=== PATIENT | female | born 1990 | race African-American/Black ===

== ENCOUNTER 2016-08-13 19:30 | Inpatient (IN) | payer MEDICAID ==
[2016-08-13] MEDS ORDERED: Lactated Ringers 1,000 ML ONE (19:56)
[2016-08-13] MEDS ORDERED: Sodium Chloride 0.9% 10 ML Syringe FLUSH PRN (20:25)
[2016-08-13] MEDS ORDERED: Nalbuphine 20 MG/1 ML Amp IVPUSH PRN (20:25)
[2016-08-13] MEDS ORDERED: Ondansetron 4 MG/2 ML SDV IVPUSH PRN (20:25)
[2016-08-13] MEDS ORDERED: fentaNYL 100 MCG/2 ML SDV ONE (20:27)
[2016-08-13] MEDS ORDERED: Oxytocin/Lactated Ringers 10 UNIT/1,000 ML BAG IV SCH (20:30)
--- NOTE | 2016-08-13 20:32 | PCM.LDHP ---
L&D History of Present Illness - General Date of Service: 08/13/16 Admit Problem/Dx: Patient Status Order with Admit Dx/Problem 08/13/16 20:25 Patient Status [ADT] Routine Admission Diagnosis/Problem Admission Diagnosis/Problem Normal Source of Information: Patient History Limitations: Reports: No Limitations - History of Present Illness Introduction:: 26 y/o at 38 1/7 wks presents in labor. States this afternoon she woke up from her nap feeling like her underwear were wet. Went to the restroom and noted some bleeding/spotting when she wiped. Presented to L&D thereafter. Exam showed patient to have similar dilation from clinic, but findings consistent with rupture. Otherwise doing well. Contractions really painful. 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) (Hx of hemorrhage) : 3 Para: 2 LMP (Approximate): Hematologic History: Reports: Blood Transfusion(s) (After second delivery required transfusion) - Infectious Disease History Infectious Disease History: Reports: 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) (Hx of gonorrhea and chlamydia) - Past Surgical History Female Surgical History: Reports: None Social & Family History - Tobacco Use Smoking Status *Q: Never Smoker - Alcohol Use Alcohol Use History: No - Recreational Drug Use Recreational Drug Use: No H&P Review of Systems - Review of Systems: Review Of Systems: See Below General: Reports: No Symptoms Pulmonary: Reports: No Symptoms Cardiovascular: Reports: No Symptoms Gastrointestinal: Reports: Abdominal Pain (contraction pain) Genitourinary: Reports: No Symptoms Musculoskeletal: Reports: No Symptoms L&D Exam - Exam Exam: See Below - Vital Signs Weight: 75.16 kg - OB Specific Contraction Intensity: Moderate Movement: Active Heart Tones: Present Heart Tones per Min: 140 Heart Rate (FHR) Variability: Moderate (6-25 bmp) Presentation: Vertex - Greene Score Greene Score Cervix Position: Posterior Greene Score Consistency: Soft Greene Score Effacement: 51-70% Greene Score Dilation: 3-4 cm Greene Score Infant's Station: -2 Greene Score Total: 7 - Exam General: Alert, Oriented, Cooperative Lungs: Clear to Auscultation, Normal Respiratory Effort Cardiovascular: Regular Rate, Regular Rhythm Abdomen: Soft Genitourinary: Normal external exam Extremities: Normal Inspection Skin: Warm, Dry, Intact - Problem List (1) 38 weeks gestation of SNOMED Code(s): 45307166 ICD Code: Z3A.38 - 38 WEEKS GESTATION OF Status: Acute Current Visit: Yes (2) cardiac echogenic focus SNOMED Code(s): 614855130 ICD Code: O35.8XX0 - MATERNAL CARE FOR OTH ABNORMALITY AND DAMAGE, UNSP Status: Acute Current Visit: Yes Qualifiers: Fetus number: single or unspecified fetus Qualified Code(s): O35.8XX0 - Maternal care for other (suspected) abnormality and damage, not applicable or unspecified Problem List Initiated/Reviewed/Updated: Yes Orders Last 24hrs: Active Orders 24 hr Category Date Time Status Patient Status [ADT] Routine ADT 08/13/16 20:25 Ordered Activity as Tolerated [RC] PFP Care 08/13/16 20:25 Ordered Communication Order [RC] ASDIRECTED Care 08/13/16 20:25 Ordered Heart Tones [RC] ASDIRECTED Care 08/13/16 20:25 Ordered Notify Provider [RC] PFP Care 08/13/16 20:25 Ordered Notify Provider [RC] PRN Care 08/13/16 20:25 Ordered Peripheral IV Care [RC] . DIRECTED Care 08/13/16 20:25 Ordered Vital Signs [RC] PER UNIT ROUTINE Care 08/13/16 20:25 Ordered CBC WITH AUTO DIFF [HEME] Stat Lab 08/13/16 20:10 Ordered Lactated Ringers [Ringers, Lactated] 1,000 ml Med 08/13/16 20:30 Ordered IV ASDIRECTED Nalbuphine [Nubain] Med 08/13/16 20:25 Ordered 10 mg IVPUSH Q2H PRN Ondansetron [Zofran] Med 08/13/16 20:25 Ordered 4 mg IVPUSH Q4H PRN Oxytocin/Lactated Ringers [Pitocin in LR 10 Units/1,000 Med 08/13/16 20:30 Ordered ML] 10 unit in 1,000 ml IV TITRATE Sodium Chloride 0.9% [Saline Flush] Med 08/13/16 20:25 Ordered 10 ml FLUSH ASDIRECTED PRN Electronic Heart Tones Ext w TOCO [WOMSER] Oth 08/13/16 20:25 Ordered Routine Electronic Heart Tones Internal [WOMSER] Per Unit Ot 08/13/16 20:25 Ordered Routine Peripheral IV Insertion Adult [OM.PC] Routine Ot 08/13/16 20:25 Ordered Resuscitation Status Routine Resus Stat 08/13/16 20:25 Ordered Medication Orders Lactated Ringer's (Ringers, Lactated) 1,000 mls @ 100 mls/hr IV ASDIRECTED KERRY Oxytocin/Lactated Ringer's (Pitocin In Lr 10 Units/1,000 Ml) 10 unit in 1,000 mls @ 500 mls/hr IV TITRATE KERRY PRN Reason: Protocol Nalbuphine HCl (Nubain) 10 mg IVPUSH Q2H PRN PRN Reason: Pain (moderate 4-6) Ondansetron HCl (Zofran) 4 mg IVPUSH Q4H PRN PRN Reason: Nausea/Vomiting Sodium Chloride (Saline Flush) 10 ml FLUSH ASDIRECTED PRN PRN Reason: Keep Vein Open Assessment/Plan Comment:: 26 y/o at 38 1/7 wks who presents in early labor/srom * CBC * GBS negative, no need for antibiotics * Pain management per patient preference, would like an epidural * Will make pediatric team aware of previous findings of echogenic cardiac focus on ultrasound * Anticipate
[2016-08-13] MEDS: Lactated Ringers 1,000 ML IV SCH ×2 (20:45→21:30)
--- NOTE | 2016-08-13 20:54 | PCM.PREANE ---
Preanesthetic Assessment - Anesthesia/Transfusion/Family Hx Anesthesia History: Prior Anesthesia Without Reaction Family History of Anesthesia Reaction: No Transfusion History: Prior Transfusion Without Reaction - Review of Systems General: No Symptoms Pulmonary: No Symptoms Cardiovascular: No Symptoms Gastrointestinal: No symptoms Neurological: No Symptoms Other: Reports: None - Physical Assessment Pulse: 87 O2 Sat by Pulse Oximetry: 100 Respiratory Rate: 22 Blood Pressure: 136/83 Temperature: 98 F Height: 5 ft 5 in Weight: 75.16 kg ASA Class: 2 Mental Status: Alert & Oriented x3 Airway Class: Mallampati = 1 Dentition: Reports: Normal Dentition Thyro-Mental Finger Breadths: 3 Mouth Opening Finger Breadths: 3 ROM/Head Extension: Other Lungs: Clear to auscultation Cardiovascular: Regular Rate, Regular Rhythm - Lab Values: Laboratory Last Values WBC 9.59 K/mm3 (3.98-10.04) 08/13/16 20:23 RBC 4.02 M/mm3 (3.98-5.22) 08/13/16 20:23 Hgb 10.3 gm/L (11.2-15.7) L 08/13/16 20:23 Hct 32.7 % (34.1-44.9) L 08/13/16 20:23 MCV 81.3 fl (79.4-94.8) 08/13/16 20:23 MCH 25.6 pg (25.6-32.2) 08/13/16 20:23 MCHC 31.5 g/dl (32.2-35.5) L 08/13/16 20:23 RDW Std Deviation 41.6 fL (36.4-46.3) 08/13/16 20:23 Plt Count 143 K/mm3 (182-369) L 08/13/16 20:23 MPV 11.9 fl (9.4-12.3) 08/13/16 20:23 Neut % (Auto) 72.7 % (34.0-71.1) H 08/13/16 20:23 Lymph % (Auto) 15.0 % (19.3-51.7) L 08/13/16 20:23 [place] % (Auto) 11.1 % (4.7-12.5) 08/13/16 20:23 Eos % (Auto) 0.9 (0.7-5.8) 06/07/17 20:23 Baso % (Auto) 0.1 % (0.1-1.2) 08/13/16 20:23 Neut # (Auto) 6.97 K/mm3 (1.56-6.13) H 08/13/16 20:23 Lymph # (Auto) 1.44 K/mm3 (1.18-3.74) 08/13/16 20:23 [place] # (Auto) 1.06 K/mm3 (0.24-0.36) H 08/13/16 20:23 Eos # (Auto) 0.09 K/mm3 (0.04-0.36) 08/13/16 20:23 Baso # (Auto) 0.01 K/mm3 (0.01-0.08) 08/13/16 20:23 - Allergies Allergies/Adverse Reactions: Allergies Allergy/AdvReac Type Severity Reaction Status Date / Time No Known Allergies Allergy Verified 08/01/16 01:51 - Blood Blood Available: No - Acknowledgements Anesthesia Type Planned: Epidural Pt an Appropriate Candidate for the Planned Anesthesia: Yes Alternatives and Risks of Anesthesia Discussed w Pt/Guardian: Yes Pt/Guardian Understands and Agrees with Anesthesia Plan: Yes PreAnesthesia Questionnaire Cardiovascular History: Reports: 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) (Hx of gestational HTN/ Preclampsia in a prior ) 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: 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: , 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) (Hx of hemorrhage) Hematologic History: Reports: Blood Transfusion(s) (After second delivery required transfusion) - Infectious Disease History Infectious Disease History: Reports: 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) (Hx of gonorrhea and chlamydia) - Past Surgical History Female Surgical History: Reports: None - SUBSTANCE USE Smoking Status *Q: Former Smoker (quit 9 months ago) Tobacco Use Within Last Twelve Months: Cigarettes Second Hand Smoke Exposure: Yes Recreational Drug Use History: No - HOME MEDS Home Medications: Home Meds PNV95/Ferrous Fumarate/FA [ Tablet] 1 each PO DAILY 05/31/16 [History] - CURRENT (IN HOUSE) MEDS Current Meds: Current Medications Lactated Ringer's (Ringers, Lactated) 1,000 mls @ 100 mls/hr IV ASDIRECTED KERRY Oxytocin/Lactated Ringer's (Pitocin In Lr 10 Units/1,000 Ml) 10 unit in 1,000 mls @ 500 mls/hr IV TITRATE KERRY PRN Reason: Protocol Nalbuphine HCl (Nubain) 10 mg IVPUSH Q2H PRN PRN Reason: Pain (moderate 4-6) Ondansetron HCl (Zofran) 4 mg IVPUSH Q4H PRN PRN Reason: Nausea/Vomiting Sodium Chloride (Saline Flush) 10 ml FLUSH ASDIRECTED PRN PRN Reason: Keep Vein Open Discontinued Medications Fentanyl (Sublimaze) Confirm Administered Dose 100 mcg .ROUTE .STK-MED ONE Stop: 08/13/16 20:28 Lactated Ringer's (Ringers, Lactated) Confirm Administered Dose 1,000 mls @ as directed .ROUTE .STK-MED ONE Stop: 08/13/16 19:57
[2016-08-13] MEDS ORDERED: fentaNYL 100 MCG/2 ML SDV EPIDUR PRN (21:15)
[2016-08-13] MEDS ORDERED: diphenhydrAMINE 50 MG/ML SDV IVPUSH PRN (21:15)
[2016-08-13] MEDS ORDERED: Bupivacaine/fentaNYL/NS 100 ML Bag EPIDUR SCH (21:15)
[2016-08-13] MEDS ORDERED: ePHEDrine 50 MG/ML SDV IVPUSH PRN (21:15)
--- NOTE | 2016-08-13 21:36 | PCM.SN ---
- Free Text/Narrative Note: 08/[id number] IV started 20 guage left hand area with 1 attempt. Secured and IV flowing.
[2016-08-14] MEDS: Lactated Ringers 1,000 ML IV SCH (00:15)
[2016-08-14] MEDS ORDERED: Misoprostol 200 MCG Tab ONE (01:06)
[2016-08-14] MEDS ORDERED: Methylergonovine 0.2 MG/1 ML Amp IM STA (01:25)
[2016-08-14] MEDS ORDERED: Misoprostol 200 MCG Tab PO STA (01:25)
[2016-08-14] MEDS ORDERED: ceFAZolin 1 GM in Premix Bag 1 BAG IV ONE (01:25)
--- NOTE | 2016-08-14 01:29 | PCM.DEL ---
L & D Note - General Info Date of Service: 08/14/16 - Delivery Note Labor: spontaneous Delivery Outcome: Livebirth Delivery Method: Spontaneous Vaginal Delivery Delivery Mode: Spontaneous Presentation: Left Occiput Anterior (CARLOS) Nuchal cord: none Anesthesia Type: Epidural Amniotic Fluid Description: Clear Episiotomy Type: None Laceration: none Placenta: intact, expressed Cord: 3 vessels Estimated blood loss: 750 Resuscitation needed: Yes [employer]: bulb syringe, stimulated, warmed, blanket used, warmer used Score 1 min: 8 Score 5 min: 9 Delivery Comments (Free Text/Narrative):: Patient found to be complete and began pushing. With maternal pushing effort head delivered from an CARLOS presentation. No nuchal cord present. With gentle downward traction the shoulders and body delivered. Infant placed on maternal abdomen. Cord clamped and cut. Cord blood obtained. Placenta allowed time to separate and noted to be somewhat sitting in the cervix and so gently grasped and extracted. After delivery of the placenta there was fairly pronounced bleeding due to uterine atony. Pitocin had been started prior to delivery of placenta and so additional uterotonic agents of 600 mcg buccal Cytotec and 0.2 mg of IM Methergine were given. Uterus did respond to these 2 additional uterotonic medications along with fairly aggressive uterine massage. Total EBL approximately 750 cc. Inspection of the perineum done after control of bleeding showed no lacerations. - Patient Data Vitals - most recent: Last Vital Signs Temp 36.6 C 08/13/16 20:54 Pulse 87 08/13/16 20:54 Resp 22 H 08/13/16 20:54 BP 136/83 08/13/16 20:54 Pulse Ox 100 08/13/16 20:54 Weight - most recent: 75.16 kg Lab Results last 24 hrs: Laboratory Results - last 24 hr 08/13/16 Range/Units 20:23 WBC 9.59 (3.98-10.04) K/mm3 RBC 4.02 (3.98-5.22) M/mm3 Hgb 10.3 L (11.2-15.7) gm/L Hct 32.7 L (34.1-44.9) % MCV 81.3 (79.4-94.8) fl MCH 25.6 (25.6-32.2) pg MCHC 31.5 L (32.2-35.5) g/dl RDW Std Deviation 41.6 (36.4-46.3) fL Plt Count 143 L (182-369) K/mm3 MPV 11.9 (9.4-12.3) fl Neut % (Auto) 72.7 H (34.0-71.1) % Lymph % (Auto) 15.0 L (19.3-51.7) % [place] % (Auto) 11.1 (4.7-12.5) % Eos % (Auto) 0.9 (0.7-5.8) Baso % (Auto) 0.1 (0.1-1.2) % Neut # (Auto) 6.97 H (1.56-6.13) K/mm3 Lymph # (Auto) 1.44 (1.18-3.74) K/mm3 [place] # (Auto) 1.06 H (0.24-0.36) K/mm3 Eos # (Auto) 0.09 (0.04-0.36) K/mm3 Baso # (Auto) 0.01 (0.01-0.08) K/mm3 Med Orders - Current: Current Medications Diphenhydramine HCl (Benadryl) 25 mg IVPUSH Q6H PRN PRN Reason: pruritis Last Admin: 08/13/16 22:51 Dose: 25 mg Ephedrine Sulfate (Ephedrine Sulfate) 5 mg IVPUSH ASDIRECTED PRN PRN Reason: Hypotension Fentanyl (Sublimaze) 100 mcg EPIDUR Q3H PRN PRN Reason: Pain Fentanyl/Bupivacaine HCl (Fentanyl/Bupivacaine/Ns 2 Mcg-0.125% 100 Ml) 100 ml EPIDUR ASDIRECTED [facility] Last Admin: 08/13/16 21:22 Dose: 100 ml Lactated Ringer's (Ringers, Lactated) 1,000 mls @ 100 mls/hr IV ASDIRECTED [facility] Last Admin: 08/13/16 21:30 Dose: 100 mls/hr Oxytocin/Lactated Ringer's (Pitocin In Lr 10 Units/1,000 Ml) 10 unit in 1,000 mls @ 500 mls/hr IV TITRATE [facility] PRN Reason: Protocol Cefazolin Sodium/Dextrose 1 gm (/ Premix) 50 mls @ 100 mls/hr IV ONETIME ONE Stop: 08/14/16 01:54 Methylergonovine Maleate (Methergine) 0.2 mg IM NOW STA Stop: 08/14/16 01:26 Misoprostol (Cytotec) 600 mcg PO NOW Stop: 08/14/16 01:26 Nalbuphine HCl (Nubain) 10 mg IVPUSH Q2H PRN PRN Reason: Pain (moderate 4-6) Ondansetron HCl (Zofran) 4 mg IVPUSH Q4H PRN PRN Reason: Nausea/Vomiting Last Admin: 08/14/16 00:21 Dose: 4 mg Sodium Chloride (Saline Flush) 10 ml FLUSH ASDIRECTED PRN PRN Reason: Keep Vein Open Discontinued Medications Fentanyl (Sublimaze) Confirm Administered Dose 100 mcg .ROUTE .STK-MED ONE Stop: 08/13/16 20:28 Last Admin: 08/13/16 21:16 Dose: 100 mcg Lactated Ringer's (Ringers, Lactated) Confirm Administered Dose 1,000 mls @ as directed .ROUTE .STK-MED ONE Stop: 08/13/16 19:57 Misoprostol (Cytotec) Confirm Administered Dose 600 mcg .ROUTE .STK-MED ONE Stop: 08/14/16 01:07 - Problem List & Annotations (1) 38 weeks gestation of SNOMED Code(s): 20000252 Code(s): Z3A.38 - 38 WEEKS GESTATION OF Status: Acute Current Visit: Yes (2) cardiac echogenic focus SNOMED Code(s): 888725508 Code(s): O35.8XX0 - MATERNAL CARE FOR OTH ABNORMALITY AND DAMAGE, UNSP Status: Acute Current Visit: Yes Qualifiers: Fetus number: single or unspecified fetus Qualified Code(s): O35.8XX0 - Maternal care for other (suspected) abnormality and damage, not applicable or unspecified (3) Vaginal delivery SNOMED Code(s): 758456996 Code(s): O80 - ENCOUNTER FOR FULL-TERM UNCOMPLICATED DELIVERY Status: Acute Current Visit: Yes (4) hemorrhage SNOMED Code(s): 44692613 Code(s): O72.1 - OTHER IMMEDIATE HEMORRHAGE Status: Acute Current Visit: Yes Qualifiers: hemorrhage type: other immediate Qualified Code(s): O72.1 - Other immediate hemorrhage - Problem List Review Problem List Initiated/Reviewed/Updated: Yes - My Orders Last 24 Hours: My Active Orders 08/13/16 20:25 Patient Status [ADT] Routine Activity as Tolerated [RC] PFP Communication Order [RC] ASDIRECTED Notify Provider [RC] PFP Notify Provider [RC] PRN Peripheral IV Care [RC] . DIRECTED Vital Signs [RC] PER UNIT ROUTINE Nalbuphine [Nubain] 10 mg IVPUSH Q2H PRN Ondansetron [Zofran] 4 mg IVPUSH Q4H PRN Sodium Chloride 0.9% [Saline Flush] 10 ml FLUSH ASDIRECTED PRN Electronic Heart Tones Ext w TOCO [WOMSER] Routine Electronic Heart Tones Internal [WOMSER] Per Unit Routine Peripheral IV Insertion Adult [OM.PC] Routine Resuscitation Status Routine 08/13/16 20:30 Lactated Ringers [Ringers, Lactated] 1,000 ml IV ASDIRECTED Oxytocin/Lactated Ringers [Pitocin in LR 10 Units/1,000 ML] 10 unit in 1,000 ml IV TITRATE 08/14/16 01:25 Methylergonovine [Methergine] 0.2 mg IM NOW STA Misoprostol [Cytotec] 600 mcg PO NOW STA ceFAZolin [Ancef] 1 gm Premix Bag 1 bag IV ONETIME 08/14/16 01:26 Patient Status Manage Transfer [TRANSFER] Routine - Assessment Assessment:: 26 y/o G3 now P3003 PPD#0 from at 38 2/7 wks - Plan Plan:: * Routine cares * Bottle feeding * CBC in AM to follow up from [facility] * Anticipate discharge home in 1-2 days Angie Ledbetter
[2016-08-14] MEDS: Acetaminophen 325 MG Tab PO PRN ×3 (04:15→20:16)
[2016-08-14] MEDS ORDERED: Ibuprofen 600 MG Tab PO PRN (07:25)
[2016-08-14] MEDS ORDERED: Lanolin 100% Cream 7 GM Tube TOP PRN (07:25)
[2016-08-14] MEDS ORDERED: Witch Hazel Medicated Pads 100/Jar TOP PRN (07:25)
[2016-08-14] MEDS ORDERED: Benzocaine/Menthol 20%-0.5% Spray 56 GM Canister TOP PRN (07:25)
[2016-08-14] MEDS ORDERED: Bupivacaine 0.25% 10 ML SDV ONE (22:22)
--- NOTE | 2016-08-15 07:19 | PCM.PNPP ---
- General Info Date of Service: 08/15/16 Functional Status: Reports: pain controlled, tolerating diet, ambulating, urinating - Review of Systems General: Reports: No Symptoms Pulmonary: Reports: no symptoms Cardiovascular: Reports: No Symptoms Gastrointestinal: Reports: No symptoms Genitourinary: Reports: no symptoms Musculoskeletal: Reports: no symptoms - Patient Data Vital Signs - most recent: Last Vital Signs Temp 36.4 C 08/15/16 04:24 Pulse 68 08/15/16 04:24 Resp 14 08/15/16 04:24 BP 114/67 08/15/16 04:24 Pulse Ox 97 08/15/16 04:24 Weight - most recent: 75.16 kg I&O - last 24 hours: Intake & Output 08/14/16 08/15/16 08/15/16 22:59 06:59 14:59 Intake Total 300 Balance 300 Lab Results - last 24 hrs: Laboratory Results - last 24 hr 08/15/16 Range/Units 05:25 WBC 8.78 (3.98-10.04) K/mm3 RBC 3.11 L (3.98-5.22) M/mm3 Hgb 7.9 L (11.2-15.7) gm/L Hct 25.6 L (34.1-44.9) % MCV 82.3 (79.4-94.8) fl MCH 25.4 L (25.6-32.2) pg MCHC 30.9 L (32.2-35.5) g/dl RDW Std Deviation 41.6 (36.4-46.3) fL Plt Count 166 L (182-369) K/mm3 MPV 12.7 H (9.4-12.3) fl Med Orders - Current: Current Medications Acetaminophen (Tylenol) 650 mg PO Q4H PRN PRN Reason: mild pain or fever Last Admin: 08/14/16 20:16 Dose: 650 mg Benzocaine/Menthol (Dermoplast Pain Relief [place]) 0 gm TOP ASDIRECTED PRN PRN Reason: Perineal Comfort Measure Emollient Ointment (Lansinoh Hpa) 0 gm TOP ASDIRECTED PRN PRN Reason: Sore Nipples Ibuprofen (Motrin) 600 mg PO Q6H PRN PRN Reason: Mild pain or fever Last Admin: 08/14/16 08:32 Dose: 600 mg [place] (Tucks) 1 pad TOP ASDIRECTED PRN PRN Reason: Hemorrhoid pain Discontinued Medications Diphenhydramine HCl (Benadryl) 25 mg IVPUSH Q6H PRN PRN Reason: pruritis Last Admin: 08/13/16 22:51 Dose: 25 mg Ephedrine Sulfate (Ephedrine Sulfate) 5 mg IVPUSH ASDIRECTED PRN PRN Reason: Hypotension Fentanyl (Sublimaze) Confirm Administered Dose 100 mcg .ROUTE .STK-MED ONE Stop: 08/13/16 20:28 Last Admin: 08/13/16 21:16 Dose: 100 mcg Fentanyl (Sublimaze) 100 mcg EPIDUR Q3H PRN PRN Reason: Pain Fentanyl/Bupivacaine HCl (Fentanyl/Bupivacaine/Ns 2 Mcg-0.125% 100 Ml) 100 ml EPIDUR ASDIRECTED [facility] Last Admin: 08/13/16 21:22 Dose: 100 ml Lactated Ringer's (Ringers, Lactated) Confirm Administered Dose 1,000 mls @ as directed .ROUTE .STK-MED ONE Stop: 08/13/16 19:57 Last Admin: 08/14/16 05:40 Dose: Not Given Lactated Ringer's (Ringers, Lactated) 1,000 mls @ 100 mls/hr IV ASDIRECTED [facility] Last Admin: 08/14/16 00:15 Dose: 100 mls/hr Oxytocin/Lactated Ringer's (Pitocin In Lr 10 Units/1,000 Ml) 10 unit in 1,000 mls @ 500 mls/hr IV TITRATE [facility] PRN Reason: Protocol Last Admin: 08/14/16 01:02 Dose: 500 mls/hr Cefazolin Sodium/Dextrose 1 gm (/ Premix) 50 mls @ 100 mls/hr IV ONETIME ONE Stop: 08/14/16 01:54 Last Admin: 08/14/16 05:28 Dose: 100 mls/hr Cefazolin Sodium/Dextrose (Ancef) Confirm Administered Dose 50 mls @ as directed .ROUTE .STK-MED ONE Stop: 08/14/16 05:24 Last Admin: 08/14/16 05:40 Dose: Not Given Methylergonovine Maleate (Methergine) 0.2 mg IM NOW STA Stop: 08/14/16 01:26 Last Admin: 08/14/16 01:15 Dose: 0.2 mg Misoprostol (Cytotec) Confirm Administered Dose 600 mcg .ROUTE .STK-MED ONE Stop: 08/14/16 01:07 Last Admin: 08/14/16 05:40 Dose: Not Given Misoprostol (Cytotec) 600 mcg PO NOW STA Stop: 08/14/16 01:26 Last Admin: 08/14/16 01:09 Dose: 600 mcg Nalbuphine HCl (Nubain) 10 mg IVPUSH Q2H PRN PRN Reason: Pain (moderate 4-6) Ondansetron HCl (Zofran) 4 mg IVPUSH Q4H PRN PRN Reason: Nausea/Vomiting Last Admin: 08/14/16 00:21 Dose: 4 mg Sodium Chloride (Saline Flush) 10 ml FLUSH ASDIRECTED PRN PRN Reason: Keep Vein Open - Interaction Infant Disposition, : [place] in Room with Family Infant Interaction: Holding Infant Feeding: Bottle Fed Support Person: Significant Other - Recovery Exam Fundal Tone: Firm Fundal Level: 1 Fingerbreadths Below Umbilicus Fundal Placement: Midline Lochia Amount: Scant, Small Lochia Color: Rubra/Red Perineum Description: Intact, Minimal Bruising/Swelling Episiotomy/Laceration: None Bladder Status: Voiding Urinary Elimination: Voided - Exam General: alert, oriented, cooperative Abdomen: soft, no tenderness Extremities: no edema Skin: warm, dry, intact - Problem List & Annotations (1) 38 weeks gestation of SNOMED Code(s): 58861769 Code(s): Z3A.38 - 38 WEEKS GESTATION OF Status: Acute Current Visit: Yes (2) cardiac echogenic focus SNOMED Code(s): 530052810 Code(s): O35.8XX0 - MATERNAL CARE FOR OTH ABNORMALITY AND DAMAGE, UNSP Status: Acute Current Visit: Yes Qualifiers: Fetus number: single or unspecified fetus Qualified Code(s): O35.8XX0 - Maternal care for other (suspected) abnormality and damage, not applicable or unspecified (3) Vaginal delivery SNOMED Code(s): 612158460 Code(s): O80 - ENCOUNTER FOR FULL-TERM UNCOMPLICATED DELIVERY Status: Acute Current Visit: Yes (4) hemorrhage SNOMED Code(s): 50317328 Code(s): O72.1 - OTHER IMMEDIATE HEMORRHAGE Status: Acute Current Visit: Yes Qualifiers: hemorrhage type: other immediate Qualified Code(s): O72.1 - Other immediate hemorrhage - Problem List Review Problem List Initiated/Reviewed/Updated: Yes - My Orders Last 24 Hours: My Active Orders 08/14/16 06:35 Acetaminophen [Tylenol] 650 mg PO Q4H PRN 08/14/16 07:25 Activity as Tolerated [RC] PER UNIT ROUTINE Vital Signs [RC] 20,04,12 Benzocaine/Menthol [Dermoplast Pain Relief [place]] See Dose Instructions TOP ASDIRECTED PRN Ibuprofen [Motrin] 600 mg PO Q6H PRN Lanolin [Lansinoh HPA] See Dose Instructions TOP ASDIRECTED PRN [place] [Tucks] 1 pad TOP ASDIRECTED PRN Assess Lochia [WOMSER] Per Unit Routine Assess Uterine Involution [WOMSER] Per Unit Routine Breast Pump [WOMSER] Per Unit Routine Heat Therapy [OM.PC] PRN Ice Therapy [OM.PC] Per Unit Routine Medication Administration Instruction [OM.PC] Routine Perineal Care [OM.PC] Per Unit Routine Peripheral IV Discontinue [OM.PC] Routine Sitz Bath [OM.PC] Per Unit Routine 08/14/16 Breakfast Regular Diet [DIET] 08/15/16 07:18 Ready for Discharge [RC] PER UNIT ROUTINE 08/15/16 07:25 Heat Therapy [OM.PC] PRN - Assessment Assessment:: 26 y/o G3 now P3003 PPD#1 from at 38 2/7 wks - Plan Plan:: * Routine cares * Bottle feeding * CBC this AM shows drop in Hb to 7.9. Continue PNV and iron supplementation on discharge * Anticipate discharge home today Angie Ledbetter
--- NOTE | 2016-08-15 07:19 | PCM.DCSUM1 ---
Discharge Summary - Discharge Data Discharge Date: 08/15/16 Discharge Disposition: Home, Self-Care 01 Condition: Good - Discharge Diagnosis/Problem(s) (1) 38 weeks gestation of SNOMED Code(s): 91804291 ICD Code: Z3A.38 - 38 WEEKS GESTATION OF Status: Acute Current Visit: Yes (2) cardiac echogenic focus SNOMED Code(s): 969813923 ICD Code: O35.8XX0 - MATERNAL CARE FOR OTH ABNORMALITY AND DAMAGE, UNSP Status: Acute Current Visit: Yes Qualifiers: Fetus number: single or unspecified fetus Qualified Code(s): O35.8XX0 - Maternal care for other (suspected) abnormality and damage, not applicable or unspecified (3) Vaginal delivery SNOMED Code(s): 135201969 ICD Code: O80 - ENCOUNTER FOR FULL-TERM UNCOMPLICATED DELIVERY Status: Acute Current Visit: Yes (4) hemorrhage SNOMED Code(s): 33840545 ICD Code: O72.1 - OTHER IMMEDIATE HEMORRHAGE Status: Acute Current Visit: Yes Qualifiers: hemorrhage type: other immediate Qualified Code(s): O72.1 - Other immediate hemorrhage - Patient Summary/Data Complications: None Consults: None Recommended Follow-up Testing/Procedures: Follow up in 5 weeks for check Hospital Course: 26 y/o presented at 38 1/7 wks in labor/SROM. She did well without the need for augmentation and underwent a vaginal delivery notable for a 750 cc PPH afterwards. PPH managed with cytotec and methergine. she did well and was discharged home on PPD#1 - Patient Instructions Diet: Regular Diet as Tolerated Activity: As Tolerated Activity, Other: Pelvic rest for 6 weeks Driving: May Drive Today Showering/Bathing: May Shower Showering/Bathing, Other: May Bathe Notify Provider of: Fever, Increased Pain, Swelling and Redness, Nausea and/or Vomiting - Discharge Plan Home Medications: Home Meds PNV95/Ferrous Fumarate/FA [ Tablet] 1 each PO DAILY 05/31/16 [History] Ibuprofen [IJD: Ibuprofen] 600 mg PO Q6H PRN #0 tablet 08/14/16 [Rx] Patient Handouts: Smoking Hazards, Smoking Cessation, Tips for Success Referrals: Angie Ledbetter MD [Primary Care Provider] - (5 weeks for check) - Discharge Summary/Plan Comment DC Time >30 min.: No - Patient Data Vitals - Most Recent: Last Vital Signs Temp 36.4 C 08/15/16 04:24 Pulse 68 08/15/16 04:24 Resp 14 08/15/16 04:24 BP 114/67 08/15/16 04:24 Pulse Ox 97 08/15/16 04:24 Weight - Most Recent: 75.16 kg I&O - Last 24 hours: Intake & Output 08/14/16 08/15/16 08/15/16 22:59 06:59 14:59 Intake Total 300 Balance 300 Lab Results - Last 24 hrs: Laboratory Results - last 24 hr 08/15/16 Range/Units 05:25 WBC 8.78 (3.98-10.04) K/mm3 RBC 3.11 L (3.98-5.22) M/mm3 Hgb 7.9 L (11.2-15.7) gm/L Hct 25.6 L (34.1-44.9) % MCV 82.3 (79.4-94.8) fl MCH 25.4 L (25.6-32.2) pg MCHC 30.9 L (32.2-35.5) g/dl RDW Std Deviation 41.6 (36.4-46.3) fL Plt Count 166 L (182-369) K/mm3 MPV 12.7 H (9.4-12.3) fl Med Orders - Current: Current Medications Acetaminophen (Tylenol) 650 mg PO Q4H PRN PRN Reason: mild pain or fever Last Admin: 08/14/16 20:16 Dose: 650 mg Benzocaine/Menthol (Dermoplast Pain Relief [place]) 0 gm TOP ASDIRECTED PRN PRN Reason: Perineal Comfort Measure Emollient Ointment (Lansinoh Hpa) 0 gm TOP ASDIRECTED PRN PRN Reason: Sore Nipples Ibuprofen (Motrin) 600 mg PO Q6H PRN PRN Reason: Mild pain or fever Last Admin: 08/14/16 08:32 Dose: 600 mg [place] (Tucks) 1 pad TOP ASDIRECTED PRN PRN Reason: Hemorrhoid pain Discontinued Medications Diphenhydramine HCl (Benadryl) 25 mg IVPUSH Q6H PRN PRN Reason: pruritis Last Admin: 08/13/16 22:51 Dose: 25 mg Ephedrine Sulfate (Ephedrine Sulfate) 5 mg IVPUSH ASDIRECTED PRN PRN Reason: Hypotension Fentanyl (Sublimaze) Confirm Administered Dose 100 mcg .ROUTE .STK-MED ONE Stop: 08/13/16 20:28 Last Admin: 08/13/16 21:16 Dose: 100 mcg Fentanyl (Sublimaze) 100 mcg EPIDUR Q3H PRN PRN Reason: Pain Fentanyl/Bupivacaine HCl (Fentanyl/Bupivacaine/Ns 2 Mcg-0.125% 100 Ml) 100 ml EPIDUR ASDIRECTED [facility] Last Admin: 08/13/16 21:22 Dose: 100 ml Lactated Ringer's (Ringers, Lactated) Confirm Administered Dose 1,000 mls @ as directed .ROUTE .STK-MED ONE Stop: 08/13/16 19:57 Last Admin: 08/14/16 05:40 Dose: Not Given Lactated Ringer's (Ringers, Lactated) 1,000 mls @ 100 mls/hr IV ASDIRECTED [facility] Last Admin: 08/14/16 00:15 Dose: 100 mls/hr Oxytocin/Lactated Ringer's (Pitocin In Lr 10 Units/1,000 Ml) 10 unit in 1,000 mls @ 500 mls/hr IV TITRATE [facility] PRN Reason: Protocol Last Admin: 08/14/16 01:02 Dose: 500 mls/hr Cefazolin Sodium/Dextrose 1 gm (/ Premix) 50 mls @ 100 mls/hr IV ONETIME ONE Stop: 08/14/16 01:54 Last Admin: 08/14/16 05:28 Dose: 100 mls/hr Cefazolin Sodium/Dextrose (Ancef) Confirm Administered Dose 50 mls @ as directed .ROUTE .STK-MED ONE Stop: 08/14/16 05:24 Last Admin: 08/14/16 05:40 Dose: Not Given Methylergonovine Maleate (Methergine) 0.2 mg IM NOW STA Stop: 08/14/16 01:26 Last Admin: 08/14/16 01:15 Dose: 0.2 mg Misoprostol (Cytotec) Confirm Administered Dose 600 mcg .ROUTE .STK-MED ONE Stop: 08/14/16 01:07 Last Admin: 08/14/16 05:40 Dose: Not Given Misoprostol (Cytotec) 600 mcg PO NOW STA Stop: 08/14/16 01:26 Last Admin: 08/14/16 01:09 Dose: 600 mcg Nalbuphine HCl (Nubain) 10 mg IVPUSH Q2H PRN PRN Reason: Pain (moderate 4-6) Ondansetron HCl (Zofran) 4 mg IVPUSH Q4H PRN PRN Reason: Nausea/Vomiting Last Admin: 08/14/16 00:21 Dose: 4 mg Sodium Chloride (Saline Flush) 10 ml FLUSH ASDIRECTED PRN PRN Reason: Keep Vein Open *Q Meaningful Use (DIS) - VTE *Q VTE Criteria *Q: - Stroke *Q Stroke Criteria *Q: - AMI *Q AMI Criteria *Q:
[2016-08-15 10:22] VITALS: BP 123/80
== END 2016-08-15 09:45 | disposition home or self-care (01) | DRG 774 ==
LOC: JD.OBCHECK 19:30 → JD.OB 19:31 → JD.OBCHECK 20:29 → JD.OB 20:29 → OBSVTOIN 08-14 01:00 → JD.OB 08-14 01:26
PROVIDERS: ADMIT Obstetrics & Gynecology; ATTEND Obstetrics & Gynecology
PROC: 3E0R3CZ (ICD-10-PCS; 2016-08-13)
PROC: 10E0XZZ Delivery of Products of Conception, External Approach (ICD-10-PCS; principal; 2016-08-14)
DX: O35.8XX0 Maternal care for other (suspected) fetal abnormality and damage, not applicable or unspecified (principal); O72.1 Other immediate postpartum hemorrhage; Z3A.38 38 weeks gestation of pregnancy; Z37.0 Single live birth
CPT/HCPCS: 01967; 36415; 85025; 85027; A9270-GY; J0690; J1200; J2210; J2405; J2590; J3010; J7120

== ENCOUNTER 2016-11-16 23:08 | Emergency (ER) | payer MEDICAID ==
[2016-11-16 23:23] VITALS: BP 150/97
[2016-11-16] MEDS ORDERED: Metoclopramide 10 MG/2 ML SDV IM ONE (23:28)
[2016-11-16] MEDS ORDERED: HYDROmorphone 1 MG/ML Syringe IM ONE (23:28)
[2016-11-16] MEDS ORDERED: diphenhydrAMINE 25 MG Cap PO ONE (23:28)
--- NOTE | 2016-11-16 23:32 | EDM.PDOC ---
ED HPI GENERAL MEDICAL PROBLEM - General Chief Complaint: Headache Stated Complaint: headache nausea Time Seen by Provider: 11/16/16 23:27 Source of Information: Reports: Patient History Limitations: Reports: No Limitations - History of Present Illness INITIAL COMMENTS - FREE TEXT/NARRATIVE: 26-year-old female presents to the hospital due to a migraine headache. She awoke with a headache this morning constant throbbing pain right hemicranial side of her head. Pulsating and throbbing. She is prone to migraine headaches last one was about 6 weeks ago. Taking Tylenol today without relief. States headache so bad at this time and she can't fall asleep. Of note she did bring along her 3-month-old male baby. He does [place] limits. Associated nausea without any vomiting. She's been able to keep fluids down but has not eaten. She is not breast-feeding. No recent falls or closed head injuries. Headache is similar to what she's experienced in the past. Onset: Today Onset Date: 11/16/16 Onset Time: 07:00 (Awoke from sleep with a well-established headache this morning.) Duration: Hour(s): Location: Reports: Head Quality: Reports: Ache, Pressure, Throbbing, Other (Pulsation.) Severity: Moderate (Current headache as 8 or 9 out of 10.) Improves with: Reports: Cold Therapy, Rest Worsens with: Reports: Movement Context: Denies: Activity, Exercise, Lifting, Sick Contact, Trauma, Other Associated Symptoms: Reports: Headaches, Other (Nausea). 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: , 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) (Hx of hemorrhage) Other OB/BYN History: hx preeclampsia with previous ; PP hemorrhage Hematologic History: Reports: Blood Transfusion(s) (After second delivery required transfusion) - Infectious Disease History Infectious Disease History: Reports: 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) (Hx of gonorrhea and chlamydia) - Past Surgical History Female Surgical History: Reports: None Social & Family History - Tobacco Use Smoking Status *Q: Former Smoker (quit 9 months ago) Years of Tobacco use: 5 Used Tobacco, but Quit: Yes Month Tobacco Last Used: December 2015 Second Hand Smoke Exposure: Yes - Caffeine Use Caffeine Use: Reports: Soda - Recreational Drug Use Recreational Drug Use: No Recreational Drug Type: Reports: Marijuana/Hashish - Living Situation & Occupation Living situation: Reports: Single Occupation: Employed ED ROS GENERAL - Review of Systems Review Of Systems: See Below Constitutional: Reports: Malaise, Decreased Appetite. Denies: Fever, Chills HEENT: Reports: Other Respiratory: Reports: No Symptoms (Photophobic.) Cardiovascular: Reports: No Symptoms Endocrine: Reports: No Symptoms GI/Abdominal: Reports: Nausea (Without vomiting) : Reports: No Symptoms Musculoskeletal: Reports: No Symptoms Skin: Reports: No Symptoms Neurological: Reports: Headache (Right hemicranial headache particularly retro- orbital.). Denies: Paresthesia, Seizure, Syncope Psychiatric: Reports: No Symptoms Hematologic/Lymphatic: Reports: No Symptoms Immunologic: Reports: No Symptoms - Physical Exam Exam: See Below Exam Limited By: No Limitations General Appearance: Alert, WD/WN, No Apparent Distress Eye Exam: Bilateral Eye: Normal Inspection, PERRL Throat/Mouth: Normal Inspection, Normal Lips, Normal Teeth, Normal Oropharynx Head Exam: Atraumatic, Normocephalic Neck: Normal Inspection, Supple, Non-Tender, Full Range of Motion Respiratory/Chest: No Respiratory Distress, No Accessory Muscle Use Cardiovascular: Normal Peripheral Pulses, Regular Rate, Rhythm, No Edema, No Murmur Neuro Exam (Abbreviated): Alert, Oriented, CN II-XII Intact, Normal Cognition, Normal Gait, Normal Reflexes, No Motor/Sensory Deficits Back Exam: Normal Inspection, Full Range of Motion Extremities: Normal Inspection, Normal Range of Motion, Non-Tender, Normal Capillary Refill Psychiatric: Normal Affect, Normal Mood Skin Exam: Warm, Dry, Intact, Normal Color, No Rash Course - Vital Signs Last Recorded V/S: Last Vital Signs Temp 36.6 C 11/16/16 23:20 Pulse 64 11/16/16 23:20 Resp 16 11/16/16 23:20 BP 150/97 H 11/16/16 23:20 Pulse Ox 96 11/16/16 23:20 - Orders/Labs/Meds Meds: Medications Discontinued Medications Generic Name Dose Route Start Last Admin Trade Name Tico PRN Reason Stop Dose Admin Diphenhydramine HCl 25 mg 11/16/16 23:28 11/16/16 23:43 Benadryl PO 11/16/16 23:29 25 mg ONETIME ONE Administration Hydromorphone HCl 1 mg 11/16/16 23:28 11/16/16 23:42 Dilaudid IM 11/16/16 23:29 1 mg ONETIME ONE Administration Metoclopramide HCl 10 mg 11/16/16 23:28 11/16/16 23:43 Reglan IM 11/16/16 23:29 10 mg ONETIME ONE Administration - Radiology Interpretation Free Text/Narrative:: 26-year-old female attends the ED with a right hemicranial headache that she's had all day long she awoke with a headache this morning. History of migraines. She denies without vomiting. She's been able to keep down fluids today. Can't sleep because of marta constant throbbing pounding headache on the right rose- side of her head. Pain is mostly retro-orbital. She is mildly photophobic. Plan I am injection of Dilaudid 1 mg with Reglan 10 mg and Benadryl 25 mg per ora. She be discharged fairly quickly from the ED as she is driving across town to her home. Departure - Departure Time of Disposition: 23:34 Disposition: Home, Self-Care 01 Condition: Fair Clinical Impression: Migraine - Discharge Information Instructions: Migraine Headache Forms: ED Department Discharge Additional Instructions: Evaluation the emergency room today in regards to a severe right hemicranial headache with associated nausea. Apical migraine headache with no neural neurological deficit identified. Treated with intramuscular injection of pain medicine dialogue 1 mg with Reglan 10 mg IM as well which is an anti-nauseated but also works in the migraine Center to reduce headache intensity. Benadryl 25 mg was given by mouth as well to make sure there are no side effects from the medications. Home to bed immediately as the medications will start to kick in and 45 minutes or less and will cause sedation.
== END 2016-11-16 23:45 | disposition home or self-care (01) ==
LOC: JD.ED 23:08
DX: G43.909 Migraine, unspecified, not intractable, without status migrainosus (principal); Z87.891 Personal history of nicotine dependence
CPT/HCPCS: 96372; 99284; A9270; J1170; J2765; 99283

== ENCOUNTER 2017-08-24 23:45 | Emergency (ER) | payer MEDICAID ==
[2017-08-24 23:54] VITALS: BP 134/99
[2017-08-25] MEDS ORDERED: Cyclobenzaprine 10 MG Tab PO ONE (00:21)
--- NOTE | 2017-08-25 00:22 | EDM.PDOC ---
ED HPI GENERAL MEDICAL PROBLEM - General Chief Complaint: General Stated Complaint: EAR AND NECK PAIN Time Seen by Provider: 08/24/17 23:57 Source of Information: Reports: Patient History Limitations: Reports: No Limitations - History of Present Illness INITIAL COMMENTS - FREE TEXT/NARRATIVE: 27 y/o F presents with neck pain and concern for high blood pressure. She states that this evening she had a mild headache, not like her usual migraines. She took tylenol and laid down. About 30 minutes later her ears felt hot. She also felt a pain in the back of her neck. She was concerned that the neck pain could be a sign of high blood pressure, and was also worried about her ears feeling hot, so came in for evaluation. She still has a headache but states it' s very mild. She has no vision changes, photophobia, nausea. She has mild pain in the very back of her neck. Not worse with head movements. Pain is mild to moderate. Doesn't recall an injury. No numbness/weakness. Continues to be concerned about possibility of high blood pressure. No CP/SOB or other complaint. Neck Pain Score (Numeric/FACES): 8 - Related Data Allergies Allergy/AdvReac Type Severity Reaction Status Date / Time ibuprofen Allergy Stomach Verified 08/24/17 23:51 Upset Home Meds: Home Meds . 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: , 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) Other OB/BYN History: hx preeclampsia with previous ; PP hemorrhage Hematologic History: Reports: Blood Transfusion(s) - Infectious Disease History Infectious Disease History: Reports: 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) (Hx of gonorrhea and chlamydia) - Past Surgical History GI Surgical History: Reports: None Female Surgical History: Reports: None Social & Family History - Tobacco Use Smoking Status *Q: Never Smoker - Caffeine Use Caffeine Use: Reports: Soda - Living Situation & Occupation Living situation: Reports: Single Occupation: Employed ED ROS GENERAL - Review of Systems Review Of Systems: See Below Constitutional: Denies: Fever HEENT: Denies: Vision Change Respiratory: Denies: Shortness of Breath Cardiovascular: Denies: Chest Pain Endocrine: Reports: No Symptoms GI/Abdominal: Denies: Abdominal Pain : Reports: No Symptoms Musculoskeletal: Reports: Neck Pain Skin: Reports: No Symptoms Neurological: Reports: Headache Psychiatric: Reports: No Symptoms Hematologic/Lymphatic: Reports: No Symptoms Immunologic: Reports: No Symptoms ED EXAM, GENERAL - Physical Exam Exam: See Below Exam Limited By: No Limitations General Appearance: Alert, WD/WN, No Apparent Distress Eye Exam: Bilateral Eye: Normal Inspection Ears: Normal External Exam Ear Exam: Bilateral Ear: Auricle Normal, Canal Normal, TM normal Nose: Normal Inspection Throat/Mouth: Normal Inspection, Normal Oropharynx, Normal Voice, No Airway Compromise Head: Atraumatic, Normocephalic Neck: Normal Inspection, Supple, Full Range of Motion, Other (mild paraspinal TTP bilat through entire neck, skin normal) Respiratory/Chest: No Respiratory Distress, Lungs Clear, Normal Breath Sounds, No Accessory Muscle Use, Chest Non-Tender Cardiovascular: Normal Peripheral Pulses, Regular Rate, Rhythm, No Edema, No Murmur GI/Abdominal: Soft, Non-Tender, No Distention Back Exam: Normal Inspection. No: Vertebral Tenderness Extremities: Normal Inspection Neurological: Alert, Oriented, CN II-XII Intact, Normal Cognition, No Motor/ Sensory Deficits Psychiatric: Normal Affect, Normal Mood Skin Exam: Warm, Dry, Intact, Normal Color, No Rash Course - Vital Signs Last Recorded V/S: Last Vital Signs Temp 36.7 C 08/24/17 23:51 Pulse 87 08/24/17 23:51 Resp 18 08/24/17 23:51 BP 134/99 H 08/24/17 23:51 Pulse Ox 100 08/24/17 23:51 - Orders/Labs/Meds Meds: Medications Discontinued Medications Generic Name Dose Route Start Last Admin Trade Name Tico PRN Reason Stop Dose Admin Cyclobenzaprine HCl 10 mg 08/25/17 00:21 08/25/17 00:25 Flexeril PO 08/25/17 00:22 10 mg ONETIME ONE Administration - Re-Assessments/Exams Free Text/Narrative Re-Assessment/Exam: 08/25/17 04:19 Has musculoskeletal pain of the neck. Exam benign, not uncomfortable appearing. Departure - Departure Time of Disposition: 00:21 Disposition: Home, Self-Care 01 Clinical Impression: Neck pain - Discharge Information Referrals: Moses Guerra MD [Primary Care Provider] - Forms: ED Department Discharge Additional Instructions: 1. Continue to take tylenol as needed for pain 2. Follow up with your primary care provider as soon as possible for further care, including a blood pressure check 3. Return to the ED if you have severe pain, difficulty breathing, passing out episode, or other concerning symptoms
== END 2017-08-25 00:25 | disposition home or self-care (01) ==
LOC: JD.ED 23:45
DX: M54.2 Cervicalgia (principal); I10 Essential (primary) hypertension; Z88.6 Allergy status to analgesic agent
CPT/HCPCS: 99283; A9270

== ENCOUNTER 2017-09-26 17:33 | Emergency (ER) | payer MEDICAID ==
[2017-09-26 17:42] VITALS: BP 137/78
--- NOTE | 2017-09-26 18:00 | EDM.PDOC ---
ED HPI GENERAL MEDICAL PROBLEM - General Chief Complaint: ENT Problem Stated Complaint: SINUS PROBLEMS Time Seen by Provider: 09/26/17 17:44 Source of Information: Reports: Patient History Limitations: Reports: No Limitations - History of Present Illness INITIAL COMMENTS - FREE TEXT/NARRATIVE: The patient presents with runny nose, congestion, itchy eyes, itchy ears and throat. She has seasonal allergies and she has tried many meds in the past with no relief. This is the time of year that she gets worse. She has a slight cough. She has no fever, chills, chest pain abdominal pain, nausea or vomiting. Onset: Gradual Duration: Week(s): Severity: Moderate Improves with: Reports: None Worsens with: Reports: None Associated Symptoms: Reports: Cough. Denies: Chest Pain, Fever/Chills, Headaches, Nausea/Vomiting, Shortness of Breath Headache Pain Score (Numeric/FACES): 8 - Related Data Allergies Allergy/AdvReac Type Severity Reaction Status Date / Time ibuprofen Allergy Stomach Verified 09/26/17 17:42 Upset Home Meds: Home Meds Cyclobenzaprine [Flexeril] 10 mg PO TID PRN #20 tab 09/26/17 [Rx] Loratadine/Pseudoephedrine [Claritin-D 24 Hour Tablet] 1 each PO DAILY #30 tab.er.24h 09/26/17 [Rx] predniSONE [Prednisone] 40 mg PO DAILY #14 tablet 09/26/17 [Rx] Past Medical History - Past Health History Medical/Surgical History: Denies Medical/Surgical History Cardiovascular History: Reports: Hypertension 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: Reports: None Gastrointestinal History: Reports: None Genitourinary History: Reports: None 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: , 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: hx preeclampsia with previous ; PP hemorrhage Hematologic History: Reports: Blood Transfusion(s) - Infectious Disease History Infectious Disease History: Reports: 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) - Past Surgical History GI Surgical History: Reports: None Female Surgical History: Reports: None Social & Family History - Family History Family Medical History: Noncontributory - Tobacco Use Smoking Status *Q: Current Every Day Smoker Years of Tobacco use: 5 Packs/Tins Daily: 0.1 - Caffeine Use Caffeine Use: Reports: Soda - Recreational Drug Use Recreational Drug Use: No - Living Situation & Occupation Living situation: Reports: Single Occupation: Employed ED ROS ENT - Review of Systems Review Of Systems: See Below Constitutional: Reports: No Symptoms HEENT: Reports: Other (Congestion runny nose, itchy ears and throat) Respiratory: Reports: Cough. Denies: Shortness of Breath Cardiovascular: Reports: No Symptoms Endocrine: Reports: No Symptoms GI/Abdominal: Reports: No Symptoms : Reports: No Symptoms Musculoskeletal: Reports: No Symptoms ED EXAM, ENT - Physical Exam Exam: See Below Exam Limited By: No Limitations General Appearance: Alert, No Apparent Distress Ears: Normal External Exam, Normal Canal, Normal TMs Nose: Normal Inspection Mouth/Throat: Normal Inspection, Normal Oropharynx, Normal Teeth Head: Atraumatic, Normocephalic Neck: Normal Inspection Respiratory/Chest: No Respiratory Distress, Lungs Clear, Normal Breath Sounds Cardiovascular: Regular Rate, Rhythm, No Edema, No Murmur GI/Abdominal: Soft, Non-Tender, No Organomegaly, No Mass Back: Normal Inspection Extremities: Normal Inspection Neurological: Alert, Oriented, No Motor/Sensory Deficits Course - Vital Signs Last Recorded V/S: Last Vital Signs Temp 98.5 F 09/26/17 17:38 Pulse 99 09/26/17 17:38 Resp 16 09/26/17 17:38 BP 137/78 09/26/17 17:38 Pulse Ox 100 09/26/17 17:38 - Re-Assessments/Exams Free Text/Narrative Re-Assessment/Exam: 09/26/17 18:01 The patient also tells me she is out of her flexeril. I will give her some of that and get her some steroids and claritin. Departure - Departure Time of Disposition: 18:05 Disposition: Home, Self-Care 01 Condition: Good Clinical Impression: Seasonal allergies - Discharge Information *PRESCRIPTION DRUG MONITORING PROGRAM REVIEWED*: Not Applicable *COPY OF PRESCRIPTION DRUG MONITORING REPORT IN PATIENT FELICIA: Not Applicable Prescriptions: Cyclobenzaprine [Flexeril] 10 mg PO TID PRN #20 tab PRN Reason: Pain Loratadine/Pseudoephedrine [Claritin-D 24 Hour Tablet] 1 each PO DAILY #30 tab.er.24h predniSONE [Prednisone] 40 mg PO DAILY #14 tablet Referrals: PCP,None [Primary Care Provider] - Liliya Botello MD [Physician] - 1 Week Additional Instructions: Take the medication as prescribed. You may want to try some flonase again or some other nose drop. Please return if you are worse.
== END 2017-09-26 18:20 | disposition home or self-care (01) ==
LOC: JD.ED 17:33
DX: J30.2 Other seasonal allergic rhinitis (principal); I10 Essential (primary) hypertension; F17.210 Nicotine dependence, cigarettes, uncomplicated; Z88.6 Allergy status to analgesic agent
CPT/HCPCS: 99283